=== PATIENT | male | born 1945 | race Caucasian/White ===

== ENCOUNTER 2018-03-01 20:40 | Inpatient (IN) | payer OTHER ==
[~2018-03-01] VITALS: Ht 175.3 cm; Wt 84.0 kg
[~2018-03-01 20:40] MED LIST: ASCORBIC ACID100 MG; CHILD ASPIRIN81 M1 PO; CIPRO500 MG PO; CRANBERRY EXTRACT PO; CRANBERRY200 MG; FLAGYL500 MG PO; FLONASE16 G1 BOTH NARES; FLORASTOR250 MG PO; FLUTICASONE PRO16 GM; GABAPENTIN600 MG PO; NEURONTIN800 MG PO; PREDNISONE1 MG PO; PREDNISONE5 MG PO; PREVACID30 MG PO; PROAIR HFA8.5 GM; SLO-NIACIN250 MG PO; SLO-NIACIN500 MG PO; SPIRIVA1 INHALATI; SPIRIVA1 INHALATI IH; VENTOLIN HFA18 GM IH; Vitamin C PO; ZANTAC300 MG PO
[2018-03-01 21:28] LABS: HEMATOCRIT 45.2 % (38.0-50.0); HEMOGLOBIN 15.8 G/DL (12.5-16.6); MCH 31.6 PG (29.0-34.0); MCV 90.4 FL (86-99); PLATELET COUNT 208 K/uL (156-360); WHITE BLOOD COUNT 11.8 K/uL (4.1-10.2)
[2018-03-01 21:41] LABS: CHLORIDE 107 mEq/L (99-109); POTASSIUM 3.9 mEq/L (3.7-5.4); SODIUM 139 mEq/L (136-147)
[2018-03-01 21:42] LABS: GLUCOSE 104 mg/dL (70-99)
[2018-03-01 21:46] LABS: GFR ESTIMATE (CALCULATED) > 59 mL/min/ (58.99-99999)
[2018-03-01 21:47] LABS: UREA NITROGEN (BUN) 18 mg/dL (9-23)
[2018-03-01 21:51] LABS: TROP-I INTERPRETATION NEGATIVE; TROPONIN-I < 0.01 ng/mL (0.0-0.30)
[2018-03-01] MEDS ORDERED: FINASTERIDE5 MG PO (22:26)
[2018-03-01] MEDS ORDERED: TAMSULOSIN HCL0.4 MG PO (22:26)
[2018-03-01] MEDS ORDERED: GABAPENTIN800 MG PO (22:27)
[2018-03-01] MEDS ORDERED: RANITIDINE HCL300 MG PO (22:28)
[2018-03-01 22:38] LABS: ALBUMIN 4.3 g/dL (3.2-4.8)
[2018-03-01 22:41] LABS: TOTAL PROTEIN 7.1 g/dL (6.4-8.3)
[2018-03-01 22:42] LABS: TOTAL BILIRUBIN 8.8 mg/dL (0.0-1.0)
[2018-03-01 22:43] LABS: ALKALINE PHOSPHATASE 287 IU/L (3-129)
[2018-03-01 22:46] LABS: AST (GOT) 325 IU/L (2-34); DIRECT BILIRUBIN 6.7 mg/dL (0.0-0.3)
[2018-03-01 22:47] LABS: APPEARANCE CLEAR ((CLEAR)); BILIRUBIN MODERATE; BLOOD NEGATIVE; COLOR AMBER ((YELLOW)); GLUCOSE (STRIP) NEGATIVE; KETONES 5; LEUKOCYTES NEGATIVE; NITRITE NEGATIVE; PROTEIN (STRIP) 30; SPECIFIC GRAVITY 1.025 (1.000-1.030); UCUL ADDED? NO
[2018-03-01 22:47] LABS: ALT (GPT) 720 IU/L (3-49); LIPASE 26 U/L (1.0-51.0)
[2018-03-01 22:57] LABS: ICTOTEST ND
[2018-03-02 00:25] LABS: AMYLASE 50 IU/L (1-118)
[2018-03-02 07:15] VITALS: BP 180/86
[2018-03-02 09:51] VITALS: BP 155/83
[2018-03-02 11:21] LABS: HEPATITIS B SURFACE ANTIGEN Nonreactive
[2018-03-02 11:22] LABS: ANTI-HEPATITIS A VIRUS (IGM) Nonreactive; HEPATITIS C ANTIBODY Nonreactive
[2018-03-02 11:23] LABS: ANTI-HEPATITIS B CORE (IGM) Nonreactive
[2018-03-02 12:47] VITALS: BP 147/75
[2018-03-02 15:47] LABS: INTER. NORMALIZED RATIO 1.1
[2018-03-02] MEDS ORDERED: LO-DOSE ASPIRIN81 M2 PO (15:53)
[2018-03-02 15:56] VITALS: BP 140/67
[2018-03-02 15:59] LABS: ALBUMIN 3.9 G/DL (3.2-4.8); ALKALINE PHOSPHATASE 227 IU/L (3-129); ALT (GPT) 464 IU/L (3-49); AST (GOT) 187 IU/L (2-34); DIRECT BILIRUBIN 2.1 mg/dL (0.0-0.3); TOTAL BILIRUBIN 3.9 MG/DL (0.0-1.0); TOTAL PROTEIN 6.3 G/DL (6.4-8.3)
[2018-03-02 17:22] LABS: APPEARANCE CLEAR ((CLEAR)); BILIRUBIN SMALL; BLOOD NEGATIVE; COLOR AMBER ((YELLOW)); GLUCOSE (STRIP) NEGATIVE; KETONES 5; LEUKOCYTES NEGATIVE; NITRITE NEGATIVE; PROTEIN (STRIP) NEGATIVE; SPECIFIC GRAVITY 1.029 (1.000-1.030); UCUL ADDED? NO
[2018-03-02 20:30] VITALS: BP 126/59
[2018-03-02 23:50] VITALS: BP 148/68
[2018-03-03 03:59] VITALS: BP 130/72
[2018-03-03 06:01] LABS: INTER. NORMALIZED RATIO 1.1
[2018-03-03 06:03] LABS: BASOPHIL (%) 0.5 % (0-1); EOSINOPHIL (%) 2.7 % (0-5); EOSINOPHIL COUNT 0.2 K/uL (0-0.3); HEMOGLOBIN 13.3 G/DL (12.5-16.6); IMMATURE GRANULOCYTE (%) 0.4 % (0.0-0.7); LYMPHOCYTE COUNT 1.7 K/uL (1.0-2.8); MCH 30.5 PG (29.0-34.0); MCHC 33.3 G/DL (30.0-36.0); MCV 91.7 FL (86-99); MONOCYTE (%) 8.9 % (3-12); MONOCYTE COUNT 0.7 K/uL (0-0.8); NEUTROPHIL (%) 66.5 % (45-76); NEUTROPHIL COUNT 5.3 K/uL (1.8-6.4); PLATELET COUNT 193 K/uL (156-360); RBC DIS.WIDTH-CV 13.2 % (11.8-14.6); RBC DIS.WIDTH-SD 45.1 % (39-53); RED BLOOD COUNT 4.36 M/uL (4.00-5.50)
[2018-03-03 06:04] LABS: PTT 30.3 SEC (25-37)
[2018-03-03 06:20] LABS: ALBUMIN 3.5 G/DL (3.2-4.8); ALKALINE PHOSPHATASE 224 IU/L (3-129); ALT (GPT) 329 IU/L (3-49); AST (GOT) 119 IU/L (2-34); CHLORIDE 110 MEQ/L (99-109); CREATININE 0.8 MG/DL (0.6-1.3); GFR ESTIMATE (CALCULATED) > 59 mL/min/ (58.99-99999); GLUCOSE 93 mg/dL (70-99); POTASSIUM 4.1 MEQ/L (3.7-5.4); SODIUM 140 MEQ/L (136-147); UREA NITROGEN (BUN) 18 mg/dL (9-23)
[2018-03-03 06:21] LABS: DIRECT BILIRUBIN 0.9 mg/dL (0.0-0.3); TOTAL BILIRUBIN 2.1 MG/DL (0.0-1.0); TOTAL PROTEIN 5.3 G/DL (6.4-8.3)
[2018-03-03 07:41] VITALS: BP 134/77
== END 2018-03-03 15:22 | disposition home or self-care (01) | DRG 441 ==
LOC: EME 20:40 → RME 20:40 → EDOF 03-02 04:58 → ENRESERV 03-02 04:59 → 3EAST 03-02 06:56
PROVIDERS: Hospitalist; Internal Medicine; Internal Medicine Gastroenterology; Physician Assistant
DX: K71.2 Toxic liver disease with acute hepatitis (principal); K72.00 Acute and subacute hepatic failure without coma; T39.315A Adverse effect of propionic acid derivatives, initial encounter; J43.9 Emphysema, unspecified; K21.9 Gastro-esophageal reflux disease without esophagitis; F17.200 Nicotine dependence, unspecified, uncomplicated; M79.7 Fibromyalgia; M35.3 Polymyalgia rheumatica; N40.0 Benign prostatic hyperplasia without lower urinary tract symptoms; E78.5 Hyperlipidemia, unspecified; I10 Essential (primary) hypertension; Z79.82 Long term (current) use of aspirin; Y92.098 Other place in other non-institutional residence as the place of occurrence of the external cause
CPT/HCPCS: 70140; 71046; 71275; 74177; 74181; 76705; 80048; 80074; 80076; 81003; 82150; 83690; 84484; 85025; 85027; 85610; 85730; 93005; G0480; J0295; J1200; J1644; J2405; J7030; J7050